=== PATIENT | male | born 1945 | race Caucasian/White ===

== ENCOUNTER 2023-06-05 16:28 | Emergency (ER) | payer OTHER ==
[~2023-06-05] VITALS: Ht 172.7 cm; Wt 77.1 kg
[2023-06-05 16:35] VITALS: BP 145/96; PULSE 77; RESP 18; TEMP 97.6; O2SAT 97
[2023-06-05] MEDS ORDERED: FLUOCINONIDE 0.05% OINT 30 GM TUBE TP SCH (17:15)
[2023-06-05] MEDS ORDERED: TOMOMETER 1 DEV DEV MC ONE (17:17)
[2023-06-05] MEDS ORDERED: FLUORESCEIN OPTH STRIP 1 MG ONE (17:22)
[2023-06-05] MEDS ORDERED: TETRACAINE HCL/PF 0.5% OPTH 4 ML BTL ONE (17:22)
[2023-06-05] MEDS: TETRACAINE 1% 2 ML AMP INJ ONE (17:23)
[2023-06-05] MEDS: FLUORESCEIN OPTH STRIP 1 MG OP ONE (17:24)
[2023-06-05] MEDS ORDERED: CILOS OP (18:05)
[2023-06-05 18:12] VITALS: BP 140/68; PULSE 84; RESP 20; TEMP 98.2; O2SAT 98
== END 2023-06-05 18:12 | disposition home or self-care (01) ==
LOC: MED 16:28
DX: S05.02XA Injury of conjunctiva and corneal abrasion without foreign body, left eye, initial encounter (principal); H11.32 Conjunctival hemorrhage, left eye; Z79.899 Other long term (current) drug therapy; X58.XXXA Exposure to other specified factors, initial encounter; Y93.89 Activity, other specified; Y92.89 Other specified places as the place of occurrence of the external cause; Y99.8 Other external cause status
CPT/HCPCS: 96372; 99283